=== PATIENT | male | born 1985 | race African-American/Black ===

== ENCOUNTER 2017-02-22 13:54 | Emergency (ER) | payer SELFPAY ==
[~2017-02-22] VITALS: Ht 175.3 cm; Wt 92.0 kg
[2017-02-22 13:58] VITALS: BP 149/83
== END 2017-02-22 20:25 | disposition left against medical advice (07) ==
LOC: ER 14:12
DX: R55 Syncope and collapse (principal); Z53.21 Procedure and treatment not carried out due to patient leaving prior to being seen by health care provider